=== PATIENT | male | born 1965 | race African-American/Black ===

== ENCOUNTER 2016-11-09 13:43 | Inpatient (IN) | payer BC ==
[~2016-11-09] VITALS: Ht 180.3 cm; Wt 95.3 kg
[2016-11-09 13:56] VITALS: BP 136/89
[2016-11-09 14:46] LABS: BASOPHILS % (AUTO) 2.1 % (0.0-2.0); EOSINOPHILS % (AUTO) 2.3 % (0.0-3.0); LYMPHOCYTES % (AUTO) 38.8 % (20.0-45.0); MEAN CORPUSCULAR HEMOGLOBIN 31.9 PG (27.0-31.0); MEAN CORPUSCULAR HGB CONC 31.6 G/DL (32.0-36.0); MEAN CORPUSCULAR VOLUME 101 FL (80-99); MEAN PLATELET VOLUME 6.2 FL (6.5-10.1); NEUTROPHILS % (AUTO) 47.8 % (45.0-75.0); PLATELET COUNT 312 K/UL (150-450); RED BLOOD COUNT 5.44 M/UL (4.20-5.40); RED CELL DISTRIBUTION WIDTH 11.8 % (11.6-14.8); WHITE BLOOD COUNT 6.1 K/UL (4.8-10.8)
[2016-11-09 14:55] LABS: TROPONIN I < 0.30 ng/mL (<=0.30)
[2016-11-09 14:58] LABS: CALCIUM 9.4 mg/dL (8.6-10.2); CREATININE 1.4 mg/dL (0.5-0.9); GLOMERULAR FILTRATION RATE 48.2 mL/min (>60); POTASSIUM 4.6 mEQ/L (3.4-4.9)
[2016-11-09 15:09] LABS: CKMB 3.5 ng/mL (< 3.8)
[2016-11-09] MEDS: Aspirin EC 81mg tab ORAL SCH ×4 (15:12→15:25)
--- NOTE | 2016-11-09 15:13 | Emergency Room Report ---
History of Present Illness General Chief Complaint: Chest Pain Source: Patient Present Illness HPI 51YOM walk-in with episode of substernal non-radiating chest pain YESTERDAY morning when he awoke No assoc SOB, n/v, diaphoresis No change with movement No recent URI symptoms No known PMHx Doesnt take meds Denies smoking, drug use. Social ETOH only No history of DVT/PE, recent travel, surgery, immobilization Has been asymptomatic since yesterday afternoon Allergies: Coded Allergies: No Known Allergies (Unverified , 11/09/16) Patient History Past Medical History: none Past Surgical History: none Pertinent Family History: none Now: No Immunizations: UTD Reviewed Nursing Documentation: PMH: Agreed, PSxH: Agreed Nursing Documentation-PMH Past Medical History: No Stated History Review of Systems All Other Systems: negative except mentioned in HPI Physical Exam Vital Signs Date Time Temp Pulse Resp B/P (MAP) Pulse Ox O2 Delivery O2 Flow Rate FiO2 11/09/16 13:46 98.1 87 20 162/102 100 Room Air Sp02 EP Interpretation: reviewed, normal General Appearance: normal inspection, well appearing, no apparent distress, alert, GCS 15, non-toxic Head: normocephalic, atraumatic Eyes: bilateral eye PERRL, bilateral eye EOMI ENT: normal ENT inspection, hearing grossly normal, normal voice Neck: normal inspection, full range of motion, supple, no bony tend Respiratory: normal inspection, lungs clear, normal breath sounds, no rhonchi, no respiratory distress, no retraction, no accessory muscle use, no wheezing, speaking full sentences, chest symmetrical, palpation of chest normal Cardiovascular #1: regular rate, rhythm, no edema Gastrointestinal: normal inspection, normal bowel sounds, non tender, soft, no guarding, no hernia Genitourinary: no CVA tenderness Musculoskeletal: normal inspection, back normal, normal range of motion, Meaghan' s Sign negative Neurologic: normal inspection, alert, oriented x3, responsive, foreign language stenographer III-XII nml as tested, motor strength/tone normal, speech normal Psychiatric: normal inspection, judgement/insight normal, mood/affect normal Skin: normal inspection, normal color, no rash Lymphatic: normal inspection Medical Decision Making Diagnostic Impression: Primary Impression: Chest pain Qualified Codes: R07.9 - Chest pain, unspecified Additional Impression: HTN (hypertension) Qualified Codes: I10 - Essential (primary) hypertension ER Course VS with elevated BP Afebrile ECG with anterolateral and inferior deep TWI. No ischemia Troponin 0 H&H hemoconcentrated - ?dehydration from heavy working out. Was hydrated with IVF NS ASA given ECG also with LVH, was started on Norvasc in ED Tele admit to Dr Benites for ACS rule out at 313pm EKG Diagnostic Results Rate: normal Rhythm: NSR ST Segments: other - Deep TWI in inferior and nii-lateral leads. No ST depression/elevation Rhythm Strip Diag. Results EP Interpretation: yes Rate: 88 Rhythm: NSR, no PVC's, no ectopy Chest X-Ray Diagnostic Results Chest X-Ray Diagnostic Results : Chest X-Ray Ordered: Yes # of Views/Limited/Complete: 1 View Indication: Chest Pain EP Interpretation: Yes Interpretation: no consolidation, no effusion, no pneumothorax, no acute cardiopulmonary disease Impression: No acute disease Electronically Signed by: Dr Deepak Nam MD Last Vital Signs Date Time Temp Pulse Resp B/P (MAP) Pulse Ox O2 Delivery O2 Flow Rate FiO2 11/09/16 13:56 73 16 Room Air 11/09/16 13:56 98.1 136/89 100 Status: improved Disposition: ADMITTED INPATIENT Condition: Serious Referrals: NOT CHOSEN BEV/,REFERRING (PCP) DEEPAK NAM M.D. Nov 09, 2016 15:13
[2016-11-09] MEDS ORDERED: NKM (15:38)
[2016-11-09 16:15] VITALS: BP 147/129
[2016-11-09 16:31] VITALS: BP 155/97
[2016-11-09] MEDS ORDERED: Metoprolol Tartrate 50mg tab ORAL ONE (16:45)
[2016-11-09] MEDS ORDERED: Zolpidem 5mg tab ORAL PRN (17:00)
[2016-11-09 19:43] LABS: TROPONIN I < 0.30 ng/mL (<=0.30)
[2016-11-09 19:51] VITALS: BP 138/100
[2016-11-09] MEDS: Metoprolol Tartrate 50mg tab ORAL SCH (21:01)
[2016-11-09 23:49] VITALS: BP 147/98
[2016-11-10 03:45] VITALS: BP 138/86
--- NOTE | 2016-11-10 05:00 | Consultation ---
DATE OF CONSULTATION: 11/09/2016 CARDIOLOGY CONSULTATION REQUESTING PHYSICIAN: Daniel Benites M.D. REASON FOR CONSULTATION: Chest pain with abnormal EKG. HISTORY OF PRESENT ILLNESS: This is a 51-year-old male with history of untreated hypertension, but no other known cardiac risk factors. He presented to the emergency room with substernal chest pain occurring yesterday when he woke up and recurring on couple of occasions today after he went to the gym. No associated shortness of breath. No nausea, vomiting, or diaphoresis was noted. He notes no recent trauma to the chest. He denies illicit drug use. MEDICATIONS: Prior to admission, none. PAST MEDICAL HISTORY: Hypertension intermittently. SOCIAL HISTORY: Negative for smoking, alcohol, or drug use. FAMILY HISTORY: Noncontributory. REVIEW OF SYSTEMS: A 10-point review of systems was performed. All systems were negative other than noted above. He notes that his blood pressure has been borderline and have been elevated in the past and he has not been on medication. PHYSICAL EXAMINATION: VITAL SIGNS: Blood pressure 162/102, heart rate 87, respiratory rate 20, and afebrile in the emergency room. Presently, blood pressure 138/100, heart rate 83, and respiratory rate 21. NECK: Supple. LUNGS: Clear. CARDIAC: Regular. Normal S1 and S2. ABDOMEN: Soft. EXTREMITIES: No edema. No bruits. LABORATORY AND DIAGNOSTIC DATA: Troponin I is negative. Chest x-ray with no acute process. EKG sinus rhythm with T-wave inversions in the precordial leads. IMPRESSION: 1. Acute coronary syndrome. 2. Hypertension, uncontrolled. 3. Abnormal electrocardiogram. PLAN: 1. Cardiac monitoring. 2. Antiplatelet therapy with aspirin and Plavix. 3. Serial troponin levels. 4. Echocardiogram. 5. Titration of antihypertensive for optimal blood pressure control. 6. Exercise stress test with myocardial perfusion. 7. Scanning to follow if no definitive troponin elevation and blood pressure control is achieved. 8. Lipid panel will be checked as well. Get Whelan M.D. DR: STACY JOB#: [id number] CC:
[2016-11-10 08:08] VITALS: BP 145/85
[2016-11-10 08:09] LABS: BASOPHILS % (AUTO) 1.6 % (0.0-2.0); EOSINOPHILS % (AUTO) 3.9 % (0.0-3.0); LYMPHOCYTES % (AUTO) 32.2 % (20.0-45.0); MEAN CORPUSCULAR HGB CONC 33.7 G/DL (32.0-36.0); MEAN CORPUSCULAR VOLUME 101 FL (80-99); MEAN PLATELET VOLUME 6.4 FL (6.5-10.1); NEUTROPHILS % (AUTO) 54.3 % (45.0-75.0); PLATELET COUNT 273 K/UL (150-450); RED BLOOD COUNT 5.44 M/UL (4.70-6.10); RED CELL DISTRIBUTION WIDTH 11.9 % (11.6-14.8); WHITE BLOOD COUNT 6.4 K/UL (4.8-10.8)
[2016-11-10 08:28] LABS: ALANINE AMINOTRANSFERASE 17 U/L (3-41); ALBUMIN/GLOBULIN RATIO 0.9 (1.0-2.7); ANION GAP 12 (5-15); ASPARTATE AMINO TRANSFERASE 24 U/L (5-40); CALCIUM 9.3 mg/dL (8.6-10.2); CARBON DIOXIDE 24 mEQ/L (20-30); CHLORIDE 101 mEQ/L (98-107); CHOLESTEROL 208 mg/dL (< 200); CHOLESTEROL/HDL RATIO 3.1 (3.3-4.4); CREATININE 1.4 mg/dL (0.7-1.2); GLOMERULAR FILTRATION RATE > 60 mL/min (>60); HEMOLYSIS 11; LDL CHOLESTEROL (CALC.) 116 mg/dL (60-99); POTASSIUM 4.3 mEQ/L (3.4-4.9); SODIUM 137 mEQ/L (135-145); TOTAL PROTEIN 7.7 g/dL (6.6-8.7)
[2016-11-10] MEDS: Metoprolol Tartrate 50mg tab ORAL SCH ×2 (08:48→21:45)
[2016-11-10 09:04] LABS: BILIRUBIN,DIRECT 0.2 mg/dL (0.1-0.3)
--- NOTE | 2016-11-10 10:24 | Diagnostic Imaging Report ---
Indication: Chest pain Technique: One view of the chest Comparison: none Findings: Lungs and pleural spaces are clear. Heart size is normal. Impression: Negative This agrees with the preliminary interpretation provided by the emergency room physician
[2016-11-10 11:24] VITALS: BP 142/86
[2016-11-10 15:39] VITALS: BP 131/75
--- NOTE | 2016-11-10 16:19 | Diagnostic Imaging Report ---
Indications: Chest pain and hypertension Technique: Single day single isotope protocol utilized. Initially, resting images obtained using IV administration 10.1 millicuries 99M technetium Myoview. Subsequently, patient underwent treadmill stress testing. See cardiology report for details. During exercise, IV administration 31.2 mCi 99 M technetium Myoview. SPECT and planar images obtained. SPECT images gated to 8 phases of the cardiac cycle were also obtained, and reformatted into cine images for evaluation of ejection fraction. Comparison: None Findings: Per cardiology report, patient experienced no symptoms. Per cardiology report, resting EKG demonstrates sinus tachycardia. Patient achieved heart rate of 157 beats for minute, in excess target heart rate 145 beats for minute. Imaging demonstrates no fixed nor reversible perfusion defects. Normal cardiac chamber size. Calculated post stress ejection fraction 78%. No focal wall motion abnormality Impression: Nonischemic clinical response to exercise stress, per cardiology report Equivocal electrocardiographic response to exercise stress, per cardiology report No imaging findings to suggest ischemia, at level of stress achieved. Calculated post stress ejection fraction greater than 70%
--- NOTE | 2016-11-10 18:19 | Cardiology Report ---
APPROVED REPORT EXAM: Two-dimensional and M-mode echocardiogram with Doppler and color Doppler. M-Mode DIMENSIONS IVSd1.3 (0.7-1.1cm)Left Atrium (MM)3.5 (1.6-4.0cm) LVDd3.5 (3.5-5.6cm)Aortic Root3.8 (2.0-3.7cm) PWd1.7 (0.7-1.1cm)Aortic Cusp Exc.2.8 (1.5-2.0cm) LVDs1.7 (2.5-4.0cm) PWs2.0 cm Normal left ventricular chamber size, systolic function and wall motion. Left ventricular ejection fraction estimated to be 65-70 %. Moderate left ventricular hypertrophy by 2-D. Anterior Echo-free space, may be due to pericardial fat or effusion. All other cardiac chamber sizes are within normal limits. Mild focal aortic valve sclerosis with adequate cusp excursion. Mildly thickened mitral valve leaflets with normal excursion. Mitral annulus and aortic root calcification. Pulmonic valve not well visualized. Normal tricuspid valve structure. IVC at normal size with physiologic collapse. A color flow and spectral Doppler study was performed and revealed: No aortic regurgitation. Trace mitral regurgitation. Mitral diastolic velocities suggest reduced left ventricular relaxation c/w mild LV diastolic dysfunction (Grade I). Trace tricuspid regurgitation. Tricuspid systolic velocities suggests peak right ventricular systolic pressure of 11 mmHg
--- NOTE | 2016-11-10 18:36 | Cardiology Report ---
APPROVED REPORT EKG Measurement Heart [id number] IA [id number] Normal sinus rhythm Possible Left atrial enlargement Left ventricular hypertrophy with repolarization abnormality Abnormal ECG
[2016-11-10 20:00] VITALS: BP 135/78
--- NOTE | 2016-11-10 20:15 | History and Physical Report ---
DATE OF ADMISSION: 11/09/2016 CHIEF COMPLAINT: Chest pain. HISTORY OF PRESENT ILLNESS: The patient is a pleasant 51-year-old male. He has no past medical history, presented with complaints of substernal chest pain. He described the pain as tightness. He denies any fever or chills. He has had no cough. He exercises regularly and has no history of exertional chest pain. He had some diaphoresis and dizziness and presented to the emergency room. On evaluation there, initial enzymes were unremarkable. He did have an abnormal EKG with T-wave inversions in V3 through V6. He was given a dose of aspirin and now admitted for further evaluation and care. PAST MEDICAL HISTORY: None. PAST SURGICAL HISTORY: None. CURRENT MEDICATIONS: None. SOCIAL HISTORY: Negative for tobacco. The patient drinks socially. No drugs. FAMILY HISTORY: None. REVIEW OF SYSTEMS: Negative except for chest tightness. PHYSICAL EXAMINATION: VITAL SIGNS: Temperature 98 degrees, pulse 85, respirations 20, and blood pressure 145/85. GENERAL: The patient is well-developed male, in no apparent distress. He is awake, alert, and oriented x4. HEENT: Pupils are equal, round, and reactive to light. Sclerae anicteric. Oropharynx clear. NECK: Supple. HEART: Regular rate and rhythm. LUNGS: Clear. ABDOMEN: Soft, nontender, and nondistended. EXTREMITIES: Without clubbing or cyanosis. LABORATORY DATA: Troponin is negative. X-rays clear. EKG showed sinus rhythm with T-wave inversions in V3 through V6. ASSESSMENT: This is a pleasant male with complaints of: 1. Chest pain, possible acute coronary syndrome. 2. Hypertension. PLAN: Antiplatelet therapy, p.r.n. nitrates. Stress test per Cardiology. Plan and care was discussed with the patient. Daniel Benites M.D. DR: TANJA JOB#: [id number] CC:
[2016-11-10 23:50] VITALS: BP 128/84
[2016-11-11 04:17] VITALS: BP 114/69
[2016-11-11 08:12] VITALS: BP 127/93
[2016-11-11] MEDS ORDERED: METOPROLOL TART50 MG ORAL (08:21)
[2016-11-11 08:35] VITALS: BP 127/93
[2016-11-11] MEDS: Metoprolol Tartrate 50mg tab ORAL SCH (08:35)
--- NOTE | 2016-11-12 12:40 | Discharge Summary ---
DATE OF ADMISSION: 11/09/2016 DATE OF DISCHARGE: 11/11/2016 ADMISSION DIAGNOSES: 1. Chest pain. 2. Hypertension. DISCHARGE DIAGNOSES: 1. Chest pain. 2. Hypertension. Hospital Course: The patient is a pleasant male who presents with complaints of chest pain. He was ruled out for CA with serial enzymes and EKGs. He was noted to be significantly hypertensive and started on antihypertensive treatment. He had a stress test that was unremarkable. Echo also was unremarkable. He was discharged home on oral antihypertensive. Discharge Medications: Please see discharge medication list for discharge medications. DIET: Cardiac diet. ACTIVITY: Ad-antwan. FOLLOWUP: The patient will follow up in the office in 1 to 2 months. Daniel Benites M.D. DR: Michelle JOB#: [id number] CC:
--- NOTE | 2016-11-12 12:40 | Progress Note ---
DATE: 11/10/2016 Late entry for 11/10/2016. Subjective: The patient was seen and evaluated. No chest pain noted. No shortness of breath. Blood pressure control has improved. He underwent myocardial perfusion scan with exercise stress today. OBJECTIVE: Vital signs: Blood pressure is 130/75, pulse 80, and respirations 20. Monitored rhythm, sinus. NECK: Supple. LUNGS: Clear. CARDIAC: Regular. Normal S1 and S2. ABDOMEN: Soft. EXTREMITIES: No edema. Laboratory data: LDL cholesterol is 116, HDL 68, and TSH 2.1. Creatinine 1.4. IMPRESSION: 1. Normal myocardial perfusion scan suggests low likelihood for flow-limiting coronary artery disease, possible microvascular angina. 2. Hypertensive heart disease. 3. Chronic kidney disease. 4. Favorable LDL/HDL ratio. Plan: Continue anti-platelet therapy with low-dose aspirin. Continue tight control of blood pressure. Outpatient monitoring of renal function and blood pressure control. Get Whlean M.D. DR: Sreekanth JOB#: [id number] CC:
== END 2016-11-11 08:45 | disposition home or self-care (01) | DRG 311 ==
LOC: EMR 14:15 → 2E 15:00 → EDSEX 15:00 → EDBEDREQ 15:23
DX: I20.8 Other forms of angina pectoris (principal); I13.10 Hypertensive heart and chronic kidney disease without heart failure, with stage 1 through stage 4 chronic kidney disease, or unspecified chronic kidney disease; N18.9 Chronic kidney disease, unspecified
CPT/HCPCS: 36415; 71010; 78452; 80053; 80061; 82248; 82550; 82553; 84443; 84484; 85025; 93005; 93017; 93306; 99285

== ENCOUNTER 2016-11-21 14:07 | Emergency (ER) | payer BC ==
[~2016-11-21] VITALS: Ht 180.3 cm; Wt 96.2 kg
[~2016-11-21 14:07] MED LIST: METOPROLOL TART50 MG ORAL; NKM
--- NOTE | 2016-11-21 14:58 | Emergency Room Report ---
History of Present Illness General Chief Complaint: Chest Pain Source: Patient Present Illness HPI 51YOM walk-in with acute chest tightness while at home Associated with occasional dizziness Was not doing anything active Asymptomatic now Denies SOB, fever/chills, nausea/vomiting Was admitted recently for ACS rule out Had serial negative troponin Had normal Cardiac echo and stress test Was started on metoprolol for HTN - has been compliant Allergies: Coded Allergies: No Known Allergies (Unverified , 11/09/16) Patient History Past Medical History: HTN Past Surgical History: none Pertinent Family History: none Social History: Denies: smoking, alcohol use, drug use Immunizations: UTD Reviewed Nursing Documentation: PMH: Agreed, PSxH: Agreed Nursing Documentation-PMH Past Medical History: No Stated History Review of Systems All Other Systems: negative except mentioned in HPI Physical Exam Vital Signs Date Time Temp Pulse Resp B/P (MAP) Pulse Ox O2 Delivery O2 Flow Rate FiO2 11/21/16 14:17 98.2 78 13 130/85 97 Room Air Sp02 EP Interpretation: reviewed, normal General Appearance: normal inspection, well appearing, no apparent distress, alert, GCS 15, non-toxic Head: normocephalic, atraumatic Eyes: bilateral eye PERRL, bilateral eye EOMI ENT: normal ENT inspection, hearing grossly normal, normal voice Neck: normal inspection, full range of motion, supple, no bony tend Respiratory: normal inspection, lungs clear, normal breath sounds, no respiratory distress, no retraction, no accessory muscle use, no wheezing, speaking full sentences Cardiovascular #1: regular rate, rhythm, no edema Gastrointestinal: normal inspection, normal bowel sounds, non tender, soft, no guarding, no hernia Genitourinary: no CVA tenderness Musculoskeletal: normal inspection, back normal, normal range of motion, Meaghan' s Sign negative Neurologic: normal inspection, alert, oriented x3, responsive, it disaster recovery manager III-XII nml as tested, motor strength/tone normal, speech normal Psychiatric: normal inspection, judgement/insight normal, mood/affect normal Skin: normal inspection, normal color, no rash Lymphatic: normal inspection Medical Decision Making Diagnostic Impression: Primary Impression: Chest pain Qualified Codes: R07.9 - Chest pain, unspecified ER Course HEART Score 1 for history of HLD ECG unchanged from previous. Still with TWI in anterior and lateral leads CXR unremarkable for PTX Remained asymptomatic in ED Monitored on monitoring manager. HR 75. BP stable/controlled Unlikely symptoms related to [id number] bradycardia Spoke to Dr Benites - recommended continue BID metoprolol, outpatient followup Low suspicion for ACS, PE, dissection or other acute dangerous pathology given recent negative cardiac workup, ECG unchanged today from previous, asymptomatic , well appearance in ED EKG Diagnostic Results Rate: normal Rhythm: NSR ST Segments: other ASA given to the pt in ED: No Rhythm Strip Diag. Results EP Interpretation: yes Rate: 75 Rhythm: NSR, no ectopy Chest X-Ray Diagnostic Results Chest X-Ray Diagnostic Results : Chest X-Ray Ordered: Yes # of Views/Limited/Complete: 1 View Indication: Chest Pain EP Interpretation: Yes Interpretation: no consolidation, no effusion, no pneumothorax, no acute cardiopulmonary disease Impression: No acute disease Electronically Signed by: Dr James Nam MD Last Vital Signs Date Time Temp Pulse Resp B/P (MAP) Pulse Ox O2 Delivery O2 Flow Rate FiO2 11/21/16 14:17 98.2 78 13 130/85 97 Room Air Status: improved Disposition: HOME, SELF-CARE JAMES NAM M.D. Nov 21, 2016 14:58
[2016-11-21 15:28] VITALS: BP 126/91
--- NOTE | 2016-11-21 16:18 | Diagnostic Imaging Report ---
Indication: SOB chest pain Technique: One view of the chest Comparison: 11/09/2016 Findings: Lungs and pleural spaces are clear. Heart size is normal. No significant interim change Impression: No acute process
== END 2016-11-21 15:30 | disposition home or self-care (01) ==
LOC: EMR 14:45
DX: R07.89 Other chest pain (principal); I10 Essential (primary) hypertension
CPT/HCPCS: 71010; 99283